=== PATIENT | female | born 1990 | race Two or more races ===

== ENCOUNTER 2019-03-31 16:12 | Emergency (ER) | payer MEDICAID, OTHER ==
[2019-03-31 17:06] VITALS: BP 98/63
[2019-03-31 18:50] LABS: Urine Bacteria NONE SEEN /hpf (None Seen); Urine Blood Negative /uL (Negative); Urine Mucus FEW (None Seen); Urine Specific Gravity 1.018 (1.001-1.035); Urine WBC 3 /hpf (0 - 5)
== END 2019-03-31 19:57 | disposition home or self-care (01) ==
LOC: ER 16:12 → EDBD 16:12 → ER 19:57
DX: G80.9 Cerebral palsy, unspecified (principal); N31.9 Neuromuscular dysfunction of bladder, unspecified; R33.9 Retention of urine, unspecified; K21.9 Gastro-esophageal reflux disease without esophagitis; Z88.1 Allergy status to other antibiotic agents
CPT/HCPCS: 73590; 73600; 73620; 81001